=== PATIENT | female | born 1965 | race Caucasian/White ===

== ENCOUNTER → 2017-01-15 | Day surgery (SDC) | payer BC ==
[~2017-01-15] MED LIST: Lactated Ringers 500 ML IV SCH; Propofol 200 MG/20 ML SDV IV ONE
--- NOTE | 2017-01-18 09:01 | OR ---
DATE OF OPERATION: 01/15/2017 PREOPERATIVE DIAGNOSIS: REFLUX ABDOMINAL PAIN. POSTOPERATIVE DIAGNOSIS: REFLUX ABDOMINAL PAIN. SURGEON: Enoc Le MD PROCEDURE: EGD WITH ESTELA. ANESTHESIA: HASH SLINGER due to reflux. COMPLICATIONS: None. SPECIMEN: Antral ESTELA. FINDINGS: 1. Full-length EGD. 2. No signs of gastritis or peptic ulcer disease. 3. Mild hiatal hernia with spontaneous reflux without esophagitis, stricturing, ulceration, or Cooney's changes. RECOMMENDATIONS: Medical followup for reflux treatment. INDICATIONS: The patient was in for complaint of abdominal pain and GERD, Dr. Bae sent her for EGD. DESCRIPTION OF PROCEDURE: The patient was prepped and draped, placed in the left lateral decubitus position. A lubricated Olympus gastroscope was inserted over a bit and advanced to cricopharyngeus area and intubated in the esophagus. Esophageal lining was benign in its entire course. The Z-line was crisp around 35-1/2 cm. There is an associated hiatal hernia with spontaneous GERD present at the distal esophagus. No stricturing ulceration or Cooney's changes seen. Scope advanced into the stomach through the pylorus and into the second portion of the duodenum. This in the duodenal bulb were benign. Excellent look at the gastric lining with and without retroflexion of scope showed no signs of any peptic ulcer disease, gastritis, polyps, mass, or otherwise. A CLOtest was obtained. Air was then suctioned. Scope was removed without complication. KAREN/VALERIA /[id number]
== END ==
LOC: CC.SDS 11:07
PROVIDERS: ATTEND Family Medicine
DX: K44.9 Diaphragmatic hernia without obstruction or gangrene (principal); K21.9 Gastro-esophageal reflux disease without esophagitis; I10 Essential (primary) hypertension; Z79.82 Long term (current) use of aspirin; Z79.899 Other long term (current) drug therapy; Z83.3 Family history of diabetes mellitus
CPT/HCPCS: 43239; 87081; J2704; J7120

== ENCOUNTER 2021-09-20 16:17 | Emergency (ER) | payer OTHER, BC ==
[2021-09-20] MEDS ORDERED: Tetracaine HCl/PF 0.5% 4 ML Bottle EYERT ONE (17:04)
[2021-09-20] MEDS ORDERED: Distilled Water Ophth Irrig Soln 120 ML Bottle EYERT ONE (17:04)
[2021-09-20] MEDS ORDERED: Erythromycin Base 0.5% Ophth Oint 3.5 GM Tube EYEBOTH ONE (17:04)
[2021-09-20] MEDS ORDERED: Fluorescein 1 MG Ophth Strip EYERT ONE (17:04)
== END 2021-09-20 17:25 | disposition home or self-care (01) ==
LOC: CC.ED 16:17
DX: T54.91XA Toxic effect of unspecified corrosive substance, accidental (unintentional), initial encounter (principal); T26.61XA Corrosion of cornea and conjunctival sac, right eye, initial encounter; Z79.82 Long term (current) use of aspirin; Z79.899 Other long term (current) drug therapy
CPT/HCPCS: 99283; A9270

== ENCOUNTER 2024-12-27 10:04 | Day surgery (SDC) | payer BC ==
[2024-12-27] MEDS: Lactated Ringers 1,000 ML IV SCH (10:12)
[2024-12-27] MEDS ORDERED: Propofol 200 MG/20 ML SDV ONE (10:38)
== END 2024-12-27 11:35 | disposition home or self-care (01) ==
LOC: CC.SDS 10:04
PROVIDERS: ATTEND Family Medicine
DX: D13.1 Benign neoplasm of stomach (principal); K29.50 Unspecified chronic gastritis without bleeding; K44.9 Diaphragmatic hernia without obstruction or gangrene; E78.5 Hyperlipidemia, unspecified; I10 Essential (primary) hypertension; J45.909 Unspecified asthma, uncomplicated; K21.9 Gastro-esophageal reflux disease without esophagitis; Z88.1 Allergy status to other antibiotic agents; Z79.82 Long term (current) use of aspirin; Z79.899 Other long term (current) drug therapy
CPT/HCPCS: 00731; 87077; J2704; J7120